=== PATIENT | male | born 1975 | race American Indian/Alaskan Native ===

== ENCOUNTER 2021-05-08 09:02 | Emergency (ER) | payer SELFPAY ==
[2021-05-08 09:09] VITALS: BP 102/71
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
== END 2021-05-08 12:16 | disposition home or self-care (01) ==
LOC: ED 09:02
DX: M79.602 Pain in left arm (principal); V49.49XA Driver injured in collision with other motor vehicles in traffic accident, initial encounter; Y93.89 Activity, other specified; Y92.89 Other specified places as the place of occurrence of the external cause; Y99.8 Other external cause status
CPT/HCPCS: 99282